=== PATIENT | female | born 1975 | race Caucasian/White ===

== ENCOUNTER 2020-08-08 11:01 | Outpatient (CLI) | payer OTHER | END 2020-08-08 11:02 | disposition home or self-care (01) | LOC: BICMAMMO 11:01 | PROVIDERS: ATTEND Family Medicine | DX: Z12.31 Encounter for screening mammogram for malignant neoplasm of breast (principal); Z80.3 Family history of malignant neoplasm of breast | CPT/HCPCS: 77063; 77067 ==

== ENCOUNTER 2020-10-09 15:33 | Inpatient (IN) | payer OTHER ==
[~2020-10-09 15:33] MED LIST: Magnevist 469MG/ML 20 ML VIAL ONE
[2020-10-09] MEDS ORDERED: hydrOXYzine 25 MG TAB PO PRN (19:11)
[2020-10-09 19:20] VITALS: BMI 23.1
[2020-10-09 19:32] LABS: #Eosinphils 0.1 thou/uL (0.0-0.7); #Lymphocytes 2.5 thou/uL (1.20-3.40); #Monocytes 0.8 thou/uL (0.11-0.59); #Neutrophils 7.1 thou/uL (1.40-6.50); %Basophils 0.4 % (0.0-1.0); %Eosinophils 0.7 % (0.0-10.0); %Monocytes 7.8 % (0.0-10.0); %Neutrophils 67.2 % (42.0-75.0); Hemoglobin 13.7 g/dL (12.0-16.0); Mean Corpuscular HGB CONC 35.1 g/dL (32.0-36.0); Mean Corpuscular Hemoglobin 33.7 pg (27.0-31.0); Mean Platelet Volume 7.5 fL (7.4-10.4); Platelet Count 241 thou/uL (130-400); RBC Distribution Width 11.3 % (11.5-14.5); Red Blood Cell (RBC) Count 4.07 mill/uL (4.20-5.40); White Blood Cell (WBC) Count 10.6 thou/uL (4.8-10.8)
[2020-10-09 19:52] LABS: ALT (SGPT) 15 U/L (8-55); AST (SGOT) 15 U/L (5-34); Albumin 4.4 g/dL (3.5-5.0); Alkaline Phosphatase 49 U/L (40-110); Anion Gap 13 mmol/L (10-20); BUN (Urea Nitrogen) 11 mg/dL (7.0-18.7); Bilirubin, Total 0.9 mg/dL (0.2-1.2); Calc. Creatinine Clearance 99 mL/min (70-130); Calcium 9.6 mg/dL (7.8-10.44); Carbon Dioxide 24 mmol/L (22-29); Chloride 106 mmol/L (98-107); Globulin 2.4 g/dL (2.4-3.5); Glucose 103 mg/dL (70-105); Potassium 3.9 mmol/L (3.5-5.1); Protein, Total 6.8 g/dL (6.0-8.3); Sodium 139 mmol/L (136-145)
[2020-10-09] MEDS ORDERED: methylPREDNISolone Sod Succ/PF 500 MG in Sodium Chloride 0.9% 250 ML 250 ML IVPB SCH (20:00)
[2020-10-09 21:27] LABS: Bacteria/HPF 3+ HPF (None Seen); Bilirubin Negative (Negative); Blood, Urine 1+ (Negative); Clarity Turbid (Clear); Glucose, Urine (Dipstick) Normal (Negative); Ketone, Urine Negative (Negative); Leukocyte Negative Leu/uL (Negative); Nitrite Negative (Negative); Protein, Urine (Dipstick) Negative (Neg-Trace); Specific Gravity, Urine 1.027 (1.002-1.036); Squamous Epithelial 0-3 HPF (0-3); Urobilinogen Normal mg/dL (Less than 2); WBC/HPF 0-3 HPF (0-3); pH, Urine 7.5 (5.0-9.0)
[2020-10-09 21:29] LABS: Urine Culture Reflex Yes Yes
[2020-10-09] MEDS: methylPREDNISolone Sod Succ/PF 500 MG in Sodium Chloride 0.9% 250 ML 250 ML IVPB SCH (21:34)
[2020-10-10 06:39] LABS: Anion Gap 10 mmol/L (10-20); BUN (Urea Nitrogen) 13 mg/dL (7.0-18.7); Calc. Creatinine Clearance 94 mL/min (70-130); Calcium 9.8 mg/dL (7.8-10.44); Carbon Dioxide 25 mmol/L (22-29); Chloride 107 mmol/L (98-107); Glucose 152 mg/dL (70-105); Potassium 4.1 mmol/L (3.5-5.1); Sodium 138 mmol/L (136-145)
[2020-10-10] MEDS: Enoxaparin Sodium 40 MG/0.4 ML SYRINGE SC SCH (08:25)
[2020-10-10] MEDS ORDERED: Diazepam 5 MG TAB PO SCH (10:30)
[2020-10-10] MEDS ORDERED: Magnevist 469MG/ML 20 ML VIAL ONE ×3 (10:48)
[2020-10-10 12:14] LABS: SARS-CoV-2 PCR by NAA Not Detected (NotDetected)
[2020-10-10 16:29] LABS: CSF Source CSF; Tube # 4
[2020-10-10 16:30] LABS: Clarity Clear (Clear)
[2020-10-10 17:05] LABS: CSF, Glucose 104 mg/dl (40-70); CSF, Protein 39 mg/dL (15-40)
[2020-10-11] MEDS: methylPREDNISolone Sod Succ/PF 500 MG in Sodium Chloride 0.9% 250 ML 250 ML IVPB SCH (02:06)
[2020-10-11] MEDS: Acetaminophen 325 MG TAB PO PRN (02:38)
[2020-10-11] MEDS: Enoxaparin Sodium 40 MG/0.4 ML SYRINGE SC SCH (08:32)
[2020-10-11] MEDS ORDERED: methylPREDNISolone Sod Succ/PF 500 MG in Sodium Chloride 0.9% 250 ML 250 ML IVPB SCH (20:00)
[2020-10-12] MEDS: Acetaminophen 325 MG TAB PO PRN (05:15)
[2020-10-12] MEDS ORDERED: Ondansetron PF 4 MG/2 ML Vial IVP PRN (05:29)
[2020-10-12] MEDS: Enoxaparin Sodium 40 MG/0.4 ML SYRINGE SC SCH (06:53)
[2020-10-12] MEDS ORDERED: Ketorolac Tromethamine 30 MG/ML VIAL IVP SCH (07:00)
[2020-10-12] MEDS ORDERED: Sodium Chloride 0.9% 1,000 ML IV SCH (10:30)
[2020-10-12] MEDS ORDERED: predniSONE 20 MG TAB PO SCH (11:15)
[2020-10-12] MEDS ORDERED: Ibuprofen 800 MG TAB PO SCH (14:00)
[2020-10-12] MEDS ORDERED: traMADol HCl 50 MG TAB PO PRN (14:11)
[2020-10-12 16:19] VITALS: BP 128/77; TEMP 98
[2020-10-14 15:41] LABS: CSF IgG Index 0.5 (0.0-0.7); CSF IgG Synthesis Rate -1.2 mg/day (-9.9 TO +3.3); IgG/Alb CSF 0.09 (0.00-0.25)
== END 2020-10-12 18:47 | disposition home or self-care (01) | DRG 60 ==
LOC: T4-A 16:59
PROVIDERS: ADMIT Family Medicine; ATTEND Family Medicine
PROC: 009U3ZX Drainage of Spinal Canal, Percutaneous Approach, Diagnostic (ICD-10-PCS; principal; 2020-10-10)
DX: G35 Multiple sclerosis (principal); F41.9 Anxiety disorder, unspecified; M50.323 Other cervical disc degeneration at C6-C7 level; G25.3 Myoclonus; H91.90 Unspecified hearing loss, unspecified ear; Z20.822 Contact with and (suspected) exposure to COVID-19; G97.1 Other reaction to spinal and lumbar puncture; R51.9 Headache, unspecified; Z88.5 Allergy status to narcotic agent
CPT/HCPCS: 36415; 70553; 72156; 72157; 72158; 80048; 80053; 81001; 82040; 82042; 82784; 82945; 83916; 84145; 84157; 85025; 87070; 87086; 87205; 89051; A9579; J1885; J2405; J2930; J7050; J7512; U0003; U0005

== ENCOUNTER 2022-08-10 14:19 | Emergency (ER) | payer OTHER ==
[2022-08-10] MEDS ORDERED: Magnevist 469MG/ML 20 ML VIAL ONE (15:09)
[2022-08-10 17:31] LABS: #Basophils 0.1 thou/uL (0.0-0.2); #Eosinphils 0.1 thou/uL (0.0-0.7); #Lymphocytes 1.9 thou/uL (1.20-3.40); #Monocytes 0.4 thou/uL (0.11-0.59); #Neutrophils 6.1 thou/uL (1.40-6.50); %Basophils 0.6 % (0.0-1.0); %Eosinophils 0.6 % (0.0-10.0); %Lymphocytes 22.5 % (21.0-51.0); %Monocytes 5.1 % (0.0-10.0); %Neutrophils 71.1 % (42.0-75.0); Hemoglobin 14.9 g/dL (12.0-16.0); Mean Corpuscular HGB CONC 32.4 g/dL (32.0-36.0); Mean Platelet Volume 7.6 fL (7.4-10.4); Platelet Count 229 10x3/uL (130-400); RBC Distribution Width 11.9 % (11.5-14.5); Red Blood Cell (RBC) Count 4.66 mill/uL (4.20-5.40); White Blood Cell (WBC) Count 8.5 10x3/uL (4.8-10.8)
[2022-08-10 17:48] LABS: BHCG - Serum Negative (NEGATIVE); Pregs Control Background? CLEAR/WHITE (CLR/WHITE); Pregs Control Bar Appear? YES (CONTROL BAR)
[2022-08-10 17:58] LABS: ALT (SGPT) Less than 7 U/L (8-55); AST (SGOT) 13 U/L (5-34); Albumin 4.8 g/dL (3.5-5.0); Alkaline Phosphatase 66 U/L (40-110); Anion Gap 14 mmol/L (10-20); BUN (Urea Nitrogen) 9 mg/dL (7.0-18.7); Bilirubin, Total 1.2 mg/dL (0.2-1.2); Calc. Creatinine Clearance 0 mL/min (70-130); Calcium 9.7 mg/dL (7.8-10.44); Carbon Dioxide 21 mmol/L (22-29); Chloride 108 mmol/L (98-107); Estimated GFR 98; Globulin 2.9 g/dL (2.4-3.5); Glucose 87 mg/dL (70-105); Potassium 3.4 mmol/L (3.5-5.1); Protein, Total 7.7 g/dL (6.0-8.3); Sodium 140 mmol/L (136-145)
[2022-08-10] MEDS ORDERED: Ondansetron PF 4 MG/2 ML Vial ONE (18:58)
[2022-08-10 19:08] LABS: Bacteria/HPF None Seen HPF (None Seen); Bilirubin Negative (Negative); Blood, Urine 1+ (Negative); Clarity Clear (Clear); Glucose, Urine (Dipstick) Normal (Negative); Ketone, Urine 20 mg/dL (Negative); Leukocyte Negative Leu/uL (Negative); Nitrite Negative (Negative); Protein, Urine (Dipstick) Negative (Neg-Trace); Specific Gravity, Urine 1.012 (1.002-1.036); Squamous Epithelial 0-3 HPF (0-3); Urobilinogen Normal mg/dL (Less than 2); WBC/HPF 0-3 HPF (0-3)
== END 2022-08-11 01:06 | disposition home or self-care (01) ==
LOC: ERS 14:19
DX: R51.9 Headache, unspecified (principal); Z87.891 Personal history of nicotine dependence
CPT/HCPCS: 36415; 70450; 70553; 80053; 81003; 81015; 84703; 85025; 85652; 86140; 96374; A9579; J2405

== ENCOUNTER 2023-11-08 15:02 | Outpatient (CLI) | payer OTHER | END 2023-11-08 15:03 | disposition home or self-care (01) | LOC: SCSMRI 15:02 | PROVIDERS: ATTEND Physician Assistant | DX: D33.3 Benign neoplasm of cranial nerves (principal); D32.0 Benign neoplasm of cerebral meninges | CPT/HCPCS: 70553; 76377 ==

== ENCOUNTER 2024-03-05 13:56 | Outpatient (CLI) | payer OTHER ==
[2024-03-05] MEDS ORDERED: Sincalide 5 MCG VIAL ONE (15:18)
[2024-03-05] MEDS ORDERED: Bacteriostatic Normal Saline 30 ML VIAL ONE (15:18)
[2024-03-05] MEDS ORDERED: Sterile Water 10 ML ONE (15:18)
== END 2024-03-05 13:57 | disposition home or self-care (01) ==
LOC: NM 13:56
PROVIDERS: ATTEND Family Medicine
DX: R10.11 Right upper quadrant pain (principal)
CPT/HCPCS: 78227; A9537; J2805